=== PATIENT | female | born 1980 | race Caucasian/White ===

== ENCOUNTER 2017-06-22 09:29 | Emergency (ER) | payer SELFPAY ==
[~2017-06-22] VITALS: Ht 167.6 cm; Wt 75.7 kg
[2017-06-22] MEDS ORDERED: LISI-552 PO (10:09)
--- OUTSIDE RECORDS SUMMARY | 2017-06-22 10:13 | XMS REPORT | Continuity of Care Document ---
Author Author [facility] Organization [facility] Address Unknown Phone Unavailable Care Team Providers Care Product Marketing Executive Name Role Phone AGAPITO RODRIGUEZ MD PCP Insurance Providers Payer Name Policy Number Subscriber Name Relationship Self Pay London Gonzalez 20 Self / Same As Patient Chief Complaint and Reason for Visit Chief Complaint Skin Condition Reason for Visit [id number] Hypersensitivity reaction Elevated blood pressure Problems Medical Problems Problem Onset Date Status Ear problem 03/09/2012 Resolved Cough ~05/22/2014 Resolved Bronchitis Unknown Resolved Sinusitis Unknown Resolved Hypertension Unknown Active Bug bite ~02/02/2015 Active Bug bites Unknown Active Hypersensitivity reaction Unknown Active Elevated blood pressure Unknown Active Medications Medication Dose Route Sig Days/Qty Instructions Order Date Discontinued Date Status Azithromycin 250 Mg ORAL SEE INSTRUCTIONS 6 Qty Day One: Take 2 tablets by mouth Days Two-Five: Take 1 tablet by mouth 05/22/14 02/04/15 Discontinued Lisinopril (Zestril) 10 Mg ORAL DAILY 30 Qty 05/22/14 03/13/15 Discontinued Benzonatate 100 Mg ORAL THREE TIMES A DAY PRN COUGH 24 Qty 05/22/14 Discontinued Hydroxyzine Hcl 25 Mg ORAL EVERY 8HRS PRN itching 12 Qty 02/02/15 Discontinued Lisinopril (Zestril) 10 Mg ORAL DAILY 30 Qty 03/13/15 Active Hydroxyzine Hcl 25 Mg ORAL EVERY 6 HOURS PRN ITCHING 30 Qty 03/13/15 Active Social History No social history. Hospital Discharge Instructions No hospital discharge instructions. Plan of Care Discharge Date 03/13/15 11:25pm Disposition 01 HOME OR SELF-CARE Condition at Discharge Stable Instructions/Education Provided Insect Bite or Sting (ED) Chronic Hypertension (ED) Prescriptions See Medications Section Referrals AGAPITO RODRIGUEZ MD Additional Instructions/Education Hydroxyzine 25 mg every 6 hours as needed for itching Clean bedding/towels Follow up with Dr. Rodriguez if symptoms worsen. Restart lisinopril 10 mg daily Follow up with Dr. Rodriguez in the next two weeks to reassess your blood pressure. Some of your test results may not be complete prior to your leaving the Emergency Department. The Emergency Department is not authorized to give test results over the phone. Please contact the doctor's office listed in this packet of information for your final results. Follow up with your primary care physician or return to the Emergency Department for worsening or worrisome symptoms. * Emergency Department phone number: [phone], x [phone]* MEDICAL RECORD If you need copies of your X-rays, call [phone]. If you need copies of your medical record, including lab results, a signed authorization for release of records will be required. A telephone call for release of Health Information is not allowed. BILLING Billing can sometimes be confusing and frustrating. To help avoid confusion in the future, please take a moment to acquaint yourself with the billing parties for services. SERVICE BILLING DEMOCRAT Emergency Room Services [facility] Physician Services [facility] X-rays [facility] Patients will receive bills for services from the appropriate provider. If you have any questions about your [facility] bill, our staff will be happy to assist you. Please call [phone], and ask for the billing department. THANK YOU for choosing [facility] as your emergency care provider! Functional Status No functional status results. Allergies, Adverse Reactions, Alerts Allergen Type Severity Reaction Status Last Updated No Known Drug Allergies Active 03/09/12 Immunizations No immunization records. Vital Signs Acute Vital Signs Vital Response Date/Time Temperature (Fahrenheit) 98 Pulse 86 bpm Respirations 16 Height 5 ft 6 in Weight 136 lb Body Mass Index 21.0 kg/m^2 Results No known relevant diagnostic tests, laboratory data and/or discharge summary. Procedures No known history of procedures. Encounters Encounter Location Date/Time Departed Emergency Room [facility] 03/13/15 10:06pm Recent Diagnosis
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
--- OUTSIDE RECORDS SUMMARY | 2017-06-22 10:14 | XMS REPORT | Continuity of Care Document ---
Author Author [facility] Organization [facility] Address Unknown Phone Unavailable Care Team Providers Care Exhaust And Muffler Repairer Name Role Phone AGAPITO FISCHER MD PCP Insurance Providers Payer Name Policy Number Subscriber Name Relationship Self Pay London Gonzalez 18 Self / Same As Patient Chief Complaint and Reason for Visit Chief Complaint Bite Animal/Human/Parasite Reason for Visit Bug bite Problems Medical Problems Problem Onset Date Status Ear problem 03/09/2012 Active Cough ~05/22/2014 Active Bronchitis Unknown Active Sinusitis Unknown Active Hypertension Unknown Active Bug bite Unknown Active Medications Medication Dose Route Sig Days/Qty Instructions Order Date Discontinued Date Status Azithromycin 250 Mg ORAL SEE INSTRUCTIONS 6 Qty Day One: Take 2 tablets by mouth Days Two-Five: Take 1 tablet by mouth 05/22/14 Active Lisinopril (Zestril) 10 Mg ORAL DAILY 30 Qty 05/22/14 Active Benzonatate 100 Mg ORAL THREE TIMES A DAY PRN COUGH 24 Qty 05/22/14 Active Hydroxyzine Hcl 25 Mg ORAL EVERY 8HRS PRN itching 12 Qty 02/02/15 Active Social History No social history. Hospital Discharge Instructions No hospital discharge instructions. Plan of Care Discharge Date 02/02/15 12:37pm Disposition 01 HOME OR SELF-CARE Condition at Discharge Stable Instructions/Education Provided Insect Bite or Sting (ED) Prescriptions See Medications Section Referrals AGAPITO FISCHER MD Additional Instructions/Education Follow up with primary care doctor. Return to ER as needed. Some of your test results may not [...] worrisome symptoms. * Emergency Department phone number: [phone], x [phone]* MEDICAL RECORD If you need copies of your X-rays, call [phone] x [phone]. If you need copies of [...] the billing parties for services. SERVICE BILLING LIBERTARIAN Emergency Room Services [facility] Physician Services [facility] X-rays [facility] Patients will receive bills for services from the appropriate provider. If you have any questions about your [facility] bill, our staff will be happy to assist you. Please call [phone], and ask for the billing department. THANK YOU for choosing [facility] as your emergency care provider! Functional Status No functional status results. Allergies, Adverse Reactions, Alerts Allergen Type Severity Reaction Status Last Updated No Known Drug Allergies Active 03/09/12 Immunizations No immunization records. Vital Signs Acute Vital Signs Vital Response Date/Time Temperature (Fahrenheit) 97.2 Pulse 98 bpm Respirations 20 Height 5 ft 6 in Weight 136 lb Body Mass Index 21.0 kg/m^2 Results No known relevant diagnostic tests, laboratory data and/or discharge summary. Procedures No known history of procedures. Encounters Encounter Location Date/Time Departed Emergency Room [facility] 02/02/15 11:51am Recent Diagnosis
--- OUTSIDE RECORDS SUMMARY | 2017-06-22 10:14 | XMS REPORT | Continuity of Care Document ---
Author Author [facility] Organization [facility] Address Unknown Phone Unavailable Care Team Providers Care Moving Picture Producer Name Role Phone AGAPITO FISCHER MD PCP Insurance Providers Payer Name Policy Number Subscriber Name Relationship Self Pay London Gonzalez 18 Self / Same As Patient Chief Complaint and Reason for Visit Chief Complaint Injury Reason for Visit Injury of hand Problems Medical Problems Problem Onset Date Status Ear problem 03/09/2012 Resolved Cough ~05/22/2014 Resolved Bronchitis Unknown Resolved Sinusitis Unknown Resolved Hypertension Unknown Active Bug bite ~02/02/2015 Resolved Bug bites ~03/13/2015 Active Hypersensitivity reaction ~03/13/2015 Active Elevated blood pressure ~03/13/2015 Active Injury of hand Unknown Active Medications Medication Dose Route Sig [...] HOURS PRN ITCHING 30 Qty 03/13/15 Active Cephalexin 500 Mg ORAL THREE TIMES A DAY 10 Days 03/18/15 Active Tramadol Hcl 50 Mg ORAL EVERY 4HRS PRN SEVERE PAIN 15 Qty 03/18/15 Active Social History No social history. Hospital Discharge Instructions No hospital discharge instructions. Plan of Care Discharge Date 03/18/15 6:00am Disposition 01 HOME OR SELF-CARE Condition at Discharge Stable Instructions/Education Provided Laceration (ED) Prescriptions See Medications Section Referrals AGAPITO FISCHER MD Additional Instructions/Education Keflex 500mg as Rx'd, three times a day for 10 days. OTC topical antibiotic twice a day. Normal soap and water hygiene. OTC Ibuprofen 400mg every 8 hours with food as needed, as main pain med. Ultram 50mg as Dispensed / Rx'd, as needed for severe pain. We updated your Tetanus today. Follow up with PCP in 3 days. Some of your test results may not [...] worrisome symptoms. * Emergency Department phone number: [phone], x [phone]* MEDICAL RECORD If you need copies of your X-rays, call [phone] x [phone]. If you need copies of [...] services. SERVICE BILLING DEMOCRAT Emergency Room Services [facility] Physician Services [facility] X-rays [place] [facility] Patients will receive bills for services from the appropriate provider. If you have any questions about your [facility] bill, our staff will be happy to assist you. Please call [phone], and ask for the billing department. THANK YOU for choosing [facility] as your emergency care provider! Functional Status No functional status results. Allergies, Adverse Reactions, Alerts Allergen Type Severity Reaction Status Last Updated No Known Drug Allergies Active 03/18/15 Immunizations Name Given Type Status Tdap 03/18/15 Administered Completed Vital Signs Acute Vital Signs Vital Response Date/Time Temperature (Fahrenheit) 97.9 Pulse 75 bpm Respirations 16 Height 5 ft 6 in Weight 131 lb Body Mass Index 21.0 kg/m^2 Results No known relevant diagnostic tests, laboratory data and/or discharge summary. Procedures No known history of procedures. Encounters Encounter Location Date/Time Registered Emergency Room [facility] 03/18/15 5:06am Departed Emergency Room [facility] 03/13/15 10:06pm Recent Diagnosis
--- OUTSIDE RECORDS SUMMARY | 2017-06-22 10:14 | XMS REPORT | Continuity of Care Document ---
Author Author [facility] Address Unknown Phone Unavailable Care Team Providers Care Inverter And Clipper Name Role Phone AGAPITO RODRIGUEZ MD PCP Insurance Providers Payer Name Policy Number Subscriber Name Relationship Self Pay London Gonzalez 20 Self / Same As Patient Advance Directives Directive Response Recorded Date/Time Advanced Directives No 06/20/15 7:15pm Type Durable Power of Atmospheric Scientist 06/20/15 7:15pm Type Durable Power of Atmospheric Scientist 06/20/15 7:15pm Chief Complaint and Reason for Visit Chief Complaint Skin Condition Reason for Visit Bug bite with infection Problems Active Problems Medical Problem Onset Date Status Bronchitis Unknown Resolved Bug bite ~02/02/2015 Resolved Bug bite with infection Unknown Acute Bug bites ~03/13/2015 Resolved Cough ~05/22/2014 Resolved Ear problem 03/09/2012 Resolved Elevated blood pressure ~03/13/2015 Resolved Hypersensitivity reaction ~03/13/2015 Resolved Hypertension Unknown Chronic Injury of hand ~03/17/2015 Acute Sinusitis Unknown Resolved Medications Current Home Medications Medication Dose Units Route Directions Days/Qty Instructions Start Date Lisinopril (Zestril) 10 Mg 10 Mg ORAL Daily 30 03/13/15 Hydroxyzine Hcl 25 Mg 25 Mg ORAL Every 6 Hours as needed for Itching 30 03/13/15 Cephalexin 500 Mg 500 Mg ORAL Three Times A Day 10 Days 03/18/15 Tramadol Hcl 50 Mg 50 Mg ORAL Every 4HRS as needed for Severe Pain 03/18/15 [High Blood Pressure] Unknown Dose ORAL As Directed 10/30/15 Hydrocodone Bit/Acetaminophen 1 Each 1 Each ORAL Every 4HRS as needed for Pain 12 06/20/15 Cephalexin Monohydrate 500 Mg 500 Mg ORAL Four Times Daily 40 06/20/15 Past Home Medications Medication Directions Ordered Status Azithromycin 6 Tab/Pkt Tablet, 250 Mg Oral See Instructions 05/22/14 Discontinued Lisinopril (Zestril) 10 Mg Tablet, 10 Mg Oral Daily 05/22/14 Discontinued Benzonatate 100 Mg Capsule, 100 Mg Oral Three Times A Day as needed for Cough 05/22/14 Discontinued Hydroxyzine Hcl 25 Mg Tablet, 25 Mg Oral Every 8HRS as needed for Itching Discontinued Social History Query Response Start Date Stop Date Smoking Status Current every day smoker Hospital Discharge Instructions No hospital discharge instructions. Plan of Care Discharge Date 06/20/15 8:02pm Disposition 01 HOME OR SELF-CARE Condition at Discharge Stable Instructions/Education Provided Cellulitis (ED) Prescriptions See Medication Section Referrals AGAPITO RODRIGUEZ MD - Additional Instructions/Education Keflex 500 mg - take four times daily for 10 days Apply heat at least 15 minutes twice daily Follow up with Dr. Rodriguez Tuesday Over the counter medication as needed for pain Hydrocodone/APAP 5/325 - take one tab every 4 hours as needed for pain not relieved by over the counter medications Some of your test results may not [...] worrisome symptoms. * Emergency Department phone number: [phone], x [phone]* MEDICAL RECORD If you need copies of your X-rays, call [phone] x [phone]. If you need copies of [...] the billing parties for services. SERVICE BILLING [employer] Emergency Room Services [facility] Physician Services [facility] X-rays [facility] Patients will receive bills for services from the appropriate provider. If you have any questions about your [facility] bill, our staff will be happy to assist you. Please call [phone], and ask for the billing department. THANK YOU for choosing [facility] as your emergency care provider! Care Plan and Goals ~~Discharge Care Plan~~ Problem: Animal/insect bite Goal: Bite area will be clean and dry Instructions: Keep wound clean and dry. Apply antibiotic ointment as directed. Maintain Rabies vaccination schedule as directed. Take medication(s) as directed. Functional Status No functional status results. Allergies, Adverse Reactions, Alerts No known allergies. Immunizations No immunization records. Vital Signs Acute Vital Signs Vital Response Date/Time Temperature (Fahrenheit) 97.9 06/20/2015 8:01pm Pulse 91 bpm 06/20/2015 8:01pm Respirations 18 06/20/2015 8:01pm Height 5 ft 6 in Weight 144 lb Body Mass Index 23.0 kg/m^2 Results No known relevant diagnostic tests, laboratory data and/or discharge summary. Procedures No known history of procedures. Encounters Encounter Location Arrival/Admit Date Discharge/Depart Date Attending Provider Departed Emergency Room [facility] 06/20/15 7:18pm 06/20/15 8:02pm NICOLAS DIANA MD Recent Diagnosis
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
[2017-06-22] MEDS ORDERED: CIPR500T4 PO (12:09)
[2017-06-22 12:29] VITALS: BP 132/87
== END 2017-06-22 12:28 | disposition home or self-care (01) ==
LOC: ER 09:32
DX: J06.9 Acute upper respiratory infection, unspecified (principal); I10 Essential (primary) hypertension; F17.210 Nicotine dependence, cigarettes, uncomplicated; Z87.828 Personal history of other (healed) physical injury and trauma
CPT/HCPCS: 99282